=== PATIENT | female | born 1970 | race Caucasian/White ===

== ENCOUNTER → 2020-11-01 13:54 | Outpatient (CLI) | payer OTHER, SELFPAY ==
--- NOTE | ~2020-11-01 | MM_ITS ---
EXAMINATION: MM screening betty BI w venessa HISTORY: Screening mammogram TECHNIQUE: Craniocaudal and mediolateral oblique 3-D tomosynthesis images were obtained and synthetic 2-D images were generated. CAD analysis was submitted and interpreted. COMPARISON: 06/09/2019 left diagnostic mammogram and complete left breast ultrasound 05/16/2019 bilateral digital screening mammogram BREAST PARENCHYMAL COMPOSITION: The breasts are heterogeneously dense, which may obscure small masses . FINDINGS: There is asymmetric density in the inner mid right breast. Diagnostic right mammogram and r ight breast ultrasound examination are recommended. There are indeterminate microcalcifications in the lower inner left breast; diagnostic left mammogram with magnification views is recommended. IMPRESSION: 1. Indeterminate microcalcifications of left breast and asymmetry of lower inner right breast 2. Bilateral diagnostic mammography and right breast ultrasound examination are recommended. BI-RADS Category 0: Incomplete: Needs additional imaging evaluation. Reviewed, dictated and finalized at location A. IMPRESSION: 1. Indeterminate microcalcifications of left breast and asymmetry of lower inne r right breast 2. Bilateral diagnostic mammography and right breast ultrasound examination are recommended. BI-RADS Category 0: Incomplete: Needs additional imaging evaluation.
== END ==
PROVIDERS: Visit Provider Nurse Practitioner Obstetrics & Gynecology
DX: Z12.31 Encounter for screening mammogram for malignant neoplasm of breast (principal); R92.8 Other abnormal and inconclusive findings on diagnostic imaging of breast
CPT/HCPCS: 77063; 77067

== ENCOUNTER → 2020-11-02 13:50 | Outpatient (REF) | payer OTHER, SELFPAY | LOC: ANHLAB 13:50 | PROVIDERS: Visit Provider Nurse Practitioner | DX: L72.0 Epidermal cyst (principal) | CPT/HCPCS: 88304 ==

== ENCOUNTER → 2021-01-17 08:54 | Outpatient (CLI) | payer OTHER, SELFPAY ==
--- NOTE | ~2021-01-17 | MMUS_ITS ---
EXAMINATION: MM diagnostic betty BI w venessa, US breast RT limited HISTORY: Right breast asymmetry and indeterminate left breast calcifications on screening mammogram TECHNIQUE: Additional 3-D tomosynthesis images of the breasts were performed and synthetic 2-D images were generated. Magnification views of the left breast are also obtained. CAD analysis was submitted and interpreted. High resolution limited right breast ultrasound was performed. COMPARISON: 11/01/2020, 06/09/2019, 05/16/2019, 08/31/2014 BREAST PARENCHYMAL COMPOSITION: The breasts are heterogeneously dense, which may obscure small masses . FINDINGS: MAMMOGRAPHIC FINDINGS: Left breast: There are grouped calcifications in the middle and posterior thirds of the inner breast at 8:00 o'clock location. These appear to be round in morphology and with magnification, stable when compared to the 2019 diagnostic mammogram. In addition, some demonstrate layering on the mediolateral view, consistent with milk of calcium. Right breast: There is a return to baseline fibroglandular appearance with spot compression of the ri ght breast in the area questioned on screening mammogram. ULTRASOUND: There is a 3 mm round, circumscribed, hypoechoic mass at the 6:00 location 4 cm from the nipple with no posterior features or internal vascularity. IMPRESSION: 1. Stable benign-appearing left breast calcifications and probably benign sonographically detected ri ght breast mass. 2. Recommend 6 month follow-up targeted right breast ultrasound. BI-RADS category 3, probably benign findings. Reviewed, dictated and finalized at location A. IMPRESSION: 1. Stable benign-appearing left breast calcifications and probably benign sonog raphically detected right breast mass. 2. Recommend 6 month follow-up targeted right breast ultrasound. BI-RADS category 3, probably benign findings.
== END ==
PROVIDERS: Visit Provider Nurse Practitioner Obstetrics & Gynecology
DX: R92.8 Other abnormal and inconclusive findings on diagnostic imaging of breast (principal)
CPT/HCPCS: 76642; 77062; 77066; G0279

== ENCOUNTER → 2023-10-08 13:55 | Outpatient (REF) | payer OTHER, SELFPAY | LOC: ANHLAB 13:55 | PROVIDERS: PCP Family Medicine; Visit Provider Plastic Surgery | DX: D48.5 Neoplasm of uncertain behavior of skin (principal) | CPT/HCPCS: 88305 ==

== ENCOUNTER 2023-11-29 16:03 | Outpatient (CLI) | payer OTHER, SELFPAY ==
--- NOTE | ~2023-11-29 | XR_ITS ---
EXAMINATION: XR finger 5th RT min 2V DATE: 11/29/2023 16:13 INDICATION: Right hand fifth digit injury. TECHNIQUE: 3 views of right hand third digit were obtained. COMPARISON: None. FINDINGS: Bone alignment is normal. There is a nondisplaced comminuted fracture of fifth middle phala nx with involvement of the proximal articular surface. Joint spaces are normal. IMPRESSION: 1. Comminuted fracture of fifth middle phalanx. Reviewed, dictated and finalized at location A.
== END 2023-11-29 16:04 | disposition home or self-care (01) ==
LOC: ANHIMG 16:04
PROVIDERS: PCP Family Medicine; Visit Provider Physician Assistant Surgical
DX: S62.626A Displaced fracture of middle phalanx of right little finger, initial encounter for closed fracture (principal); X58.XXXA Exposure to other specified factors, initial encounter
CPT/HCPCS: 73140

== ENCOUNTER 2023-12-13 15:02 | Outpatient (CLI) | payer OTHER, SELFPAY ==
--- NOTE | ~2023-12-13 | XR_ITS ---
PA, oblique, and lateral views of the right fifth finger CLINICAL HISTORY: Fracture follow-up COMPARISON: 11/29/2023 FINDINGS: Oblique nondisplaced fracture of the fifth middle phalanx is essentially unchanged from vidya or exam. Probable extension to the articular surface at the PIP joint. Osseous alignment is unchanged . Joint spaces are intact. Soft tissues are unremarkable. IMPRESSION: No significant interval change in oblique fracture of the fifth middle phalanx. Reviewed, dictated and finalized at location .
== END 2023-12-13 15:03 | disposition home or self-care (01) ==
PROVIDERS: PCP Family Medicine; Visit Provider Physician Assistant Surgical
DX: S69.91XA Unspecified injury of right wrist, hand and finger(s), initial encounter (principal)
CPT/HCPCS: 73140

== ENCOUNTER 2023-12-25 14:43 | Outpatient (CLI) | payer OTHER, SELFPAY ==
--- NOTE | ~2023-12-25 | XR_ITS ---
XR hand RT min 3V Ordering provider: Krista Sutherland PA-C History: . S69.91XA - Unspecified injury of right wrist, hand and fi... . Comparison: December 13, 2023 FINDINGS: BONES: Healing oblique fracture in the middle phalanx of the little finger. No change in alignment. JOINT SPACES: Normal. SOFT TISSUES: Normal. IMPRESSION: Healing oblique fracture in the middle phalanx of the little finger. No change in alignment. Reviewed, dictated and finalized at location A.
== END 2023-12-25 14:44 | disposition home or self-care (01) ==
PROVIDERS: PCP Family Medicine; Visit Provider Physician Assistant Surgical
DX: S62.626A Displaced fracture of middle phalanx of right little finger, initial encounter for closed fracture (principal); X58.XXXA Exposure to other specified factors, initial encounter
CPT/HCPCS: 73130